=== PATIENT | male | born 2000 | race Caucasian/White ===

== ENCOUNTER 2023-11-11 08:57 | Emergency (ER) | payer BC ==
[~2023-11-11] VITALS: Ht 170.2 cm; Wt 99.8 kg
[2023-11-11 08:58] VITALS: BP_SYST 115; PULSE 88; RESP 18; TEMP 97; O2SAT 97
[2023-11-11] MEDS ORDERED: AUG875 PO (09:24)
[2023-11-11] MEDS ORDERED: MECL-109 PO (09:24)
[2023-11-11] MEDS ORDERED: P-EP-92 PO (09:24)
[2023-11-11 09:54] VITALS: BP_SYST 115; PULSE 88; RESP 18; TEMP 97; O2SAT 97
== END 2023-11-11 09:54 | disposition home or self-care (01) ==
LOC: SED 08:57
DX: H66.92 Otitis media, unspecified, left ear (principal); H81.399 Other peripheral vertigo, unspecified ear; R09.81 Nasal congestion; J45.909 Unspecified asthma, uncomplicated; Z79.899 Other long term (current) drug therapy
CPT/HCPCS: 99283